=== PATIENT | male | born 1970 | race Caucasian/White ===

== ENCOUNTER 2023-03-30 08:14 | Outpatient (REF) | payer OTHER, SELFPAY ==
[2023-03-30 11:00] LABS: MANUAL DIFF FLAG NO
[2023-03-30 11:20] LABS: Appearance Urine Clear; Color Urine Yellow; Glucose Urine UA Negative (Negative); Leukocyte Esterase Urine Negative (Negative); Nitrite Urine Negative (Negative); Specific Gravity - Urine 1.025 (1.005-1.025); UMIC TRIGGER UA YES; Urine Blood Negative (Negative); Urine Ketones Negative (Negative); Urine Protein 100 (2+) mg/dL (Neg-Trace)
[2023-03-30 11:22] LABS: Eosinophils Absolute Auto 0.2 X10*3/uL (0.0-0.4); Eosinophils Percent Auto 3.6 % (0-4); Hematocrit 39.7 % (42.0-52.0); Hemoglobin 13.2 g/dl (14.0-18.0); Imm Gran Abs Auto 0.01 X10*3/uL (0.00-0.03); Imm Gran Pct Auto 0.2 % (0.0-0.4); Lymphocytes Absolute Auto 0.8 X10*3/uL (1.2-4.9); Lymphocytes Percent Auto 18.4 % (20-40); Mean Corpuscular HGB Conc 33.2 g/dl (31.0-36.0); Mean Corpuscular Volume 90.2 fL (80.0-98.0); Mean Platelet Volume 11.5 fL (9.4-12.4); Monocytes Absolute Auto 0.4 X10*3/uL (0.1-1.2); Monocytes Percent Auto 8.7 % (2-11); Neutrophils Absolute Auto 2.8 x10*3/uL (2.0-8.3); Neutrophils Percent Auto 68.1 % (45-73); Platelet Count 141 X10*3/uL (160-400); Red Cell Distribution Width 12.8 % (11.0-16.0); White Blood Count 4.1 X10*3/uL (4.8-10.8)
[2023-03-30 11:38] LABS: Alanine Aminotransferase 22 U/L (0-40); Albumin Level 4.4 g/dL (3.5-5.0); Alkaline Phosphatase 39 U/L (39-117); Anion Gap 13 (12-20); Aspartate Amino Transferase 27 U/L (5-37); Bilirubin Total 0.7 mg/dL (0.0-1.0); Blood Urea Nitrogen 24 mg/dL (9-16); Carbon Dioxide 25 mmol/L (22-29); Chloride 106 mmol/L (96-108); Cholesterol 268 mg/dL; Estimated Glomerular Filt Rate > 60; Glucose Fasting 95 mg/dL (60-99); HDL Cholesterol 49 mg/dL; LDL Cholesterol Calculated 188 mg/dl; Potassium 4.5 mmol/L (3.3-5.1); Sodium 139 mmol/L (135-145); Triglycerides 159 mg/dL
[2023-03-30 11:39] LABS: Bacteria Urine None Seen (None Seen); Hyaline Casts Urine >20 /LPF (0-2); RBC Urine 0-2 /HPF (0-2); Squamous Epithelial Cell Urine 0-2 /HPF (0-2); WBC Urine 0-5 /HPF (0-5)
[2023-03-30 11:59] LABS: PSA,Total (Free>4and<10) 0.65 ng/mL (0.00-4.00)
== END 2023-03-30 08:15 | disposition home or self-care (01) ==
LOC: HO.HMGCLDS 08:14
PROVIDERS: PCP Internal Medicine; Visit Provider Internal Medicine
DX: Z00.00 Encounter for general adult medical examination without abnormal findings (principal); K62.5 Hemorrhage of anus and rectum; Z12.5 Encounter for screening for malignant neoplasm of prostate
CPT/HCPCS: 36415; 80053; 80061; 81001; 84153; 85025

== ENCOUNTER 2023-04-14 06:39 | Outpatient (REF) | payer OTHER, SELFPAY ==
[2023-04-14 12:01] LABS: Iron 100 mcg/dL (45-160); Percent Iron Saturation 27 % (15-50); Total Iron Binding Capacity 368 mcg/dL (228-428); Unsaturated Iron Binding 268 ug/dL
[2023-04-14 12:34] LABS: Folate 14.5 ng/mL (> or = 4.0); Vitamin B12 308 pg/mL (200-900)
[2023-04-14 13:15] LABS: Creatinine Urine 72.64 mg/dL; Total Protein Urine Random < 7 mg/dL (<12)
== END 2023-04-14 06:40 | disposition home or self-care (01) ==
LOC: HO.HMGCLDS 06:39
PROVIDERS: PCP Internal Medicine; Visit Provider Internal Medicine
DX: D64.9 Anemia, unspecified (principal); R80.9 Proteinuria, unspecified
CPT/HCPCS: 36415; 82607; 82746; 83540; 84156

== ENCOUNTER → 2023-04-19 12:55 | Outpatient (BNVA) | payer OTHER, SELFPAY | PROVIDERS: PCP Internal Medicine; Visit Provider Nurse Practitioner ==

== ENCOUNTER 2023-06-14 08:44 | Outpatient (AMB) | payer OTHER, SELFPAY ==
--- NOTE | 2023-06-14 08:47 | MHC.PC.OV ---
Vital Signs 06/14/23 08:49 Height 5 ft 10 in Weight 183 lb BMI 26.3 BP 130/84 Blood Pressure Location Lt brachial Position Sitting Pulse 66 Pulse Source Pulse Oximeter Pulse Oximetry (%) 99 Oxygen Delivery Method Room Air Intake Visit Reasons: 2m follow up HTN Intake Note: Pt is here today for 2 months follow up visit. Allergies No Known Allergies Allergy (Verified 06/14/23 08:54) Medication List - Last Reconciled 06/14/23 by Tasha Harris MD peg 3350-electrolytes 236-22.74-6.74 -5.86 gram (Golytely) 240 mL PO Q10M 1 day Tobacco use date assessed: 06/14/23 Dental Screening Dental Screen Date: 06/14/23 Did you have a dental visit in the last 12 months?: Yes Did you have a dental problem in the last 6 months where you did not have access to dental care?: No Was dental information given to patient?: Patient has dentist HPI 2m follow up HTN HPI Details Patient presents for the follow-up of elevated blood pressure. He denies complaints PFSH Family History Father No problems noted. 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 Issac Mitchell, Amy Means, Oscar Ramirez and colleagues, with an educational norberto from [employer]. Review of Systems Const All systems reviewed & are unremarkable except as noted in HPI and below Reports no additional complaints Eyes Reports no additional complaints ENT Reports no additional complaints Card Reports no additional complaints Resp Reports no additional complaints GI Reports no additional complaints Reports no additional complaints Physical exam (Primary Care) Vital Signs: Last Vital Signs Pulse 66 06/14/23 08:49 BP 130/84 06/14/23 08:49 Pulse Ox 99 06/14/23 08:49 Oxygen Delivery Method Room Air 06/14/23 08:49 BMI result Body Mass Index 26.3 Tobacco/Smoking Status: Tobacco use Status Tobacco use date assessed 06/14/23 06/14/23 08:57 Patient Tobacco Use Status Former Tobacco user 06/14/23 08:47 e-Cigarette/Vaping Use Never Used 06/14/23 08:47 Thrive Assessment: Date of Thrive Assessment Date Thrive assessed 03/30/23 06/14/23 08:47 Const General: no acute distress HENMT Ears: hearing grossly normal bilaterally Throat: Yes posterior oropharynx normal Neck Neck: Yes supple Resp Effort & Inspection: normal respiratory effort Auscultation: clear to auscultation bilaterally Cardio Rhythm: regular rhythm Heart sounds: S1 normal heart sound present and S2 normal heart sound present Assessment and Plan Assessment & Plan (1) Elevated blood pressure reading in office without diagnosis of hypertension: Code(s): R03.0 - Elevated blood-pressure reading, without diagnosis of hypertension Plan: Continue low-sodium diet regular physical activity. Patient will monitor blood pressure at home. Follow-up in 6 months with a fasting labs before (2) Hyperlipemia: Code(s): E78.5 - Hyperlipidemia, unspecified Plan: Low-cholesterol diet discussed with the patient (3) Proteinuria: Comment: Negative protein creatinine ratio 04/21 Code(s): R80.9 - Proteinuria, unspecified Plan: Monitor urinalysis Orders: Orders Comprehensive [place]. Panel Fast 6 Months E78.5 - Hyperlipidemia, unspecified, R03.0 - Elevated blood-pressure reading, without diagnosis of hypertension Lipid Panel 6 Months E78.5 - Hyperlipidemia, unspecified, R03.0 - Elevated blood-pressure reading, without diagnosis of hypertension Complete Blood Count Auto Diff 6 Months E78.5 - Hyperlipidemia, unspecified, R03.0 - Elevated blood-pressure reading, without diagnosis of hypertension Total Protein Urine Random 6 Months R80.9 - Proteinuria, unspecified Coding Level of Care Code Est Pt Level 4 (62283) Diagnoses Elevated blood pressure reading in office without diagnosis of hypertension R03.0 Hyperlipemia E78.5 Proteinuria R80.9
[2023-06-14 08:49] VITALS: BP 130/84; PULSE 66; O2SAT 99; BMI 26.3
== END 2023-06-14 09:15 | disposition home or self-care (01) ==
PROVIDERS: PCP Internal Medicine; Visit Provider Internal Medicine
DX: R03.0 Elevated blood-pressure reading, without diagnosis of hypertension (principal); E78.5 Hyperlipidemia, unspecified; R80.9 Proteinuria, unspecified
CPT/HCPCS: 99214

== ENCOUNTER 2023-12-20 12:12 | Outpatient (REF) | payer OTHER, SELFPAY ==
[2023-12-20 13:16] LABS: MANUAL DIFF FLAG NO
[2023-12-20 13:39] LABS: Basophils Absolute Auto 0.1 X10*3/uL (0.0-0.2); Basophils Percent Auto 1.3 % (0-2); Eosinophils Absolute Auto 0.1 X10*3/uL (0.0-0.4); Eosinophils Percent Auto 2.6 % (0-4); Hematocrit 39.3 % (42.0-52.0); Hemoglobin 13.5 g/dl (14.0-18.0); Imm Gran Abs Auto 0.01 X10*3/uL (0.00-0.03); Imm Gran Pct Auto 0.2 % (0.0-0.4); Lymphocytes Absolute Auto 1.2 X10*3/uL (1.2-4.9); Lymphocytes Percent Auto 27.3 % (20-40); Mean Corpuscular HGB Conc 34.4 g/dl (31.0-36.0); Mean Corpuscular Hemoglobin 29.9 pg (27.0-33.0); Mean Corpuscular Volume 87.1 fL (80.0-98.0); Mean Platelet Volume 11.2 fL (9.4-12.4); Monocytes Absolute Auto 0.4 X10*3/uL (0.1-1.2); Monocytes Percent Auto 8.6 % (2-11); Neutrophils Absolute Auto 2.7 x10*3/uL (2.0-8.3); Platelet Count 171 X10*3/uL (160-400); Red Blood Count 4.51 X10*6/uL (4.60-5.80); Red Cell Distribution Width 13.2 % (11.0-16.0); White Blood Count 4.6 X10*3/uL (4.8-10.8)
[2023-12-20 14:18] LABS: Alanine Aminotransferase 16 U/L (0-40); Albumin Level 4.5 g/dL (3.5-5.0); Alkaline Phosphatase 39 U/L (39-117); Anion Gap 11 (12-20); Aspartate Amino Transferase 20 U/L (5-37); Bilirubin Total 0.7 mg/dL (0.0-1.0); Blood Urea Nitrogen 14 mg/dL (9-16); Calcium 9.6 mg/dL (8.4-10.2); Carbon Dioxide 30 mmol/L (22-29); Chloride 103 mmol/L (96-108); Cholesterol 249 mg/dL (<200); Estimated Glomerular Filt Rate > 60; Glucose Fasting 84 mg/dL (60-99); HDL Cholesterol 47 mg/dL (>40); LDL Cholesterol Calculated 165 mg/dL (<100); Potassium 3.6 mmol/L (3.3-5.1); Sodium 140 mmol/L (135-145); Total Protein 7.5 g/dL (6.5-8.0); Triglycerides 185 mg/dL (<150)
[2023-12-20 17:12] LABS: Total Protein Urine Random 21 mg/dL (<12)
== END 2023-12-20 12:13 | disposition home or self-care (01) ==
LOC: HO.HMGCLDS 12:12
PROVIDERS: PCP Internal Medicine; Visit Provider Internal Medicine
DX: R80.9 Proteinuria, unspecified (principal); R03.0 Elevated blood-pressure reading, without diagnosis of hypertension; E78.5 Hyperlipidemia, unspecified
CPT/HCPCS: 36415; 80053; 80061; 84156; 85025

== ENCOUNTER 2023-12-21 11:59 | Outpatient (AMB) | payer OTHER, SELFPAY ==
[2023-12-21 12:06] VITALS: BP 122/86; PULSE 78; O2SAT 93; BMI 26.7
--- NOTE | 2023-12-21 12:06 | MHC.PC.OV ---
Vital Signs 12/21/23 12:06 Height 5 ft 10 in Weight 186 lb BMI 26.7 BP 122/86 Blood Pressure Location Lt brachial Position Sitting Pulse 78 Pulse Source Pulse Oximeter Pulse Oximetry (%) 93 Oxygen Delivery Method Room Air Intake Visit Reasons: 6M. F/U-Hyperlipidemia Intake Note: Pt is here to follow up for his Lipids Allergies No Known Allergies Allergy (Verified 12/21/23 12:08) Medication List - Last Reconciled 12/21/23 by Tasha Harris MD No Known Home Meds Tobacco use date assessed: 12/21/23 Dental Screening Dental Screen Date: 12/21/23 Did you have a dental visit in the last 12 months?: Yes Did you have a dental problem in the last 6 months where you did not have access to dental care?: No Was dental information given to patient?: Patient has dentist HPI 6M. F/U-Hyperlipidemia HPI Details Pt presents for f/u hyperlipid, diet controlled. PFSH Medical History (Updated 12/21/23 @ 15:30 by Tasha Harris MD) Hyperlipemia Family History Father No problems noted. 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 1. Little interest or pleasure in doing things: not at all 2. Feeling down, depressed, or hopeless: not at all 3. Trouble falling or staying asleep, or sleeping too much: not at all 4. Feeling tired or having little energy: not at all 5. Poor appetite or overeating: not at all 6. Feeling bad about yourself - or that you are a failure or have let yourself or your family down: not at all 7. Trouble concentrating on things, such as reading the newspaper or watching television: not at all 8. Moving or speaking so slowly that other people could have noticed. Or the opposite - being so fidgety or restless that you have been moving around a lot more than usual: not at all 9. Thoughts that you would be better off or of hurting yourself in some way: not at all Total score: 0 Depression Screening Interpretation: Negative Depression Screening Done: Yes Source: Developed by Drs. Issac Mitchell, Amy Means, Oscar Ramirez and colleagues, with an educational norberto from [employer]. Thrive Questionnaire Date Thrive assessed: 12/21/23 I am a: Patient What is your living situation today?: I have a steady place to live Within the past 12 months, did the food you bought not last and you didn't have the money to get more?: Never true Within the past 12 months, did you worry whether your food would run out before you got money to buy more?: Never true Do you have trouble paying for medicines?: No Do you have trouble getting transportation to medical appointments?: No Do you have trouble paying your heating and electricity bill?: No Do you have trouble taking care of your child, family member or friend?: No Do you have trouble with day-to-day activities such as bathing, preparing meals, shopping, managing finances, etc.?: No Are you currently unemployed and looking for a job?: No Are you interested in more education?: No Please select the resources that you would like help with: None Currently or been in a relationship where the following occur: no concerns reported THRIVE Score: 0 AUDIT C Alcohol Use Questionnaire (AUDIT-C) 1. How often do you have a drink containing alcohol?: 2-4 times a month 2. How many drinks containing alcohol do you have on a typical day when you are drinking?: 1 or 2 3. How often do you have six or more drinks on one occasion?: Less than monthly Total Score: 3 FIONA-7 AMB Questionnaire FIONA-7 Date FIONA - 7 assessed: 12/21/23 Feeling nervous, anxious, or on edge: 0 = Not at all Not being able to stop or control worryin = Not at all Worrying too much about different things: 0 = Not at all Trouble relaxin = Not at all Being so restless that it is hard to sit still: 0 = Not at all Becoming easily annoyed or irritable: 0 = Not at all Feeling afraid as if something awful might happen: 0 = Not at all Total FIONA-7 score (0-4 normal; 5-9 mild; 10-14 moderate; 15-21 severe): 0 Source: Developed by Drs. Issac Mitchell, Amy Means, Oscar Ramirez and colleagues, with an educational norberto from [employer]. Review of Systems Const All systems reviewed & are unremarkable except as noted in HPI and below Reports no additional complaints Eyes Reports no additional complaints ENT Reports no additional complaints Card Reports no additional complaints Resp Reports no additional complaints GI Reports no additional complaints Reports no additional complaints Physical exam (Primary Care) Vital Signs: Last Vital Signs Pulse 78 12/21/23 12:06 BP 122/86 12/21/23 12:06 Pulse Ox 93 12/21/23 12:06 Oxygen Delivery Method Room Air 12/21/23 12:06 BMI result Body Mass Index 26.7 Tobacco/Smoking Status: Tobacco use Status Tobacco use date assessed 12/21/23 12/21/23 12:11 Patient Tobacco Use Status Former Tobacco user 12/21/23 12:11 e-Cigarette/Vaping Use Never Used 12/21/23 12:11 PHQ-9: PHQ-9 Score PHQ-9: Total score 0 12/21/23 12:47 Depression Screening Interpretation: Negative Thrive Assessment: Date of Thrive Assessment Date Thrive assessed 12/21/23 12/21/23 12:47 Currently or been in a relationship where the following occur: no concerns reported Const General: no acute distress HENMT Head: Yes normal to inspection Ears: hearing grossly normal bilaterally Face and sinus: Yes normal facial exam Eyes General: appearance normal, both eyes and all related structures Resp Effort & Inspection: normal respiratory effort Auscultation: clear to auscultation bilaterally Cardio Rhythm: regular rhythm Heart sounds: S1 normal heart sound present and S2 normal heart sound present GI Inspection: Yes normal to inspection Palpation (GI): Soft to palpation Assessment and Plan Assessment & Plan (1) Proteinuria: Comment: Negative protein creatinine ratio 04/21, Code(s): R80.9 - Proteinuria, unspecified Plan: Obtain 24 hour urine collection for protein and creatinine. Patient declined taking KEVIN inhibitor (2) Anemia: Comment: Normal iron studies and B12 level Code(s): D64.9 - Anemia, unspecified Plan: Monitor CBC (3) Annual physical exam: Code(s): Z00.00 - Encounter for general adult medical examination without abnormal findings Plan: Follow-up in 4 months with a fasting labs before, patient will have a colonoscopy tomorrow (4) Hyperlipemia: Code(s): E78.5 - Hyperlipidemia, unspecified Plan: Continue low-cholesterol diet patient declined taking statin Orders: Orders Creatinine, 24 Hr Group Today R80.9 - Proteinuria, unspecified Complete Blood Count Auto Diff 4 Months D64.9 - Anemia, unspecified, Z00.00 - Encounter for general adult medical examination without abnormal findings Vitamin B12 and Folate 4 Months D64.9 - Anemia, unspecified, Z00.00 - Encounter for general adult medical examination without abnormal findings UA w Microscopic 4 Months D64.9 - Anemia, unspecified, Z00.00 - Encounter for general adult medical examination without abnormal findings Protein, 24 Hr Urine Group Today R80.9 - Proteinuria, unspecified Comprehensive [place]. Panel Fast 4 Months D64.9 - Anemia, unspecified, Z00.00 - Encounter for general adult medical examination without abnormal findings Lipid Panel 4 Months D64.9 - Anemia, unspecified, Z00.00 - Encounter for general adult medical examination without abnormal findings PSA,Total (Free>4and<10) 4 Months D64.9 - Anemia, unspecified, Z00.00 - Encounter for general adult medical examination without abnormal findings Methylmalonic Acid 4 Months D64.9 - Anemia, unspecified Immunofixation Pnl, Serum 4 Months D64.9 - Anemia, unspecified Immunofixation, Random Urine 4 Months D64.9 - Anemia, unspecified Coding Level of Care Code Est Pt Level 4 (22022) Diagnoses Proteinuria R80.9 Anemia D64.9 Annual physical exam Z00.00 Hyperlipemia E78.5
== END 2023-12-21 15:32 | disposition home or self-care (01) ==
PROVIDERS: PCP Internal Medicine; Visit Provider Internal Medicine
DX: R80.9 Proteinuria, unspecified (principal); D64.9 Anemia, unspecified; Z00.00 Encounter for general adult medical examination without abnormal findings; E78.5 Hyperlipidemia, unspecified
CPT/HCPCS: 99214

== ENCOUNTER 2023-12-22 06:29 | Day surgery (SDC) | payer OTHER, SELFPAY ==
[2023-12-20 13:27] VITALS: BMI 26.4
--- NOTE | 2023-12-21 09:13 | P.CONAN_ITS ---
Documented by User: Brenda Sanchez NP 12/21/23 09:14 HPI - Anesthesia Eval Consult details Narrative: 53yo M for Colonoscopy [facility] Active Problems Active Problems: All Active Problems (Updated 06/14/23 @ 09:15 by Tasha Harris MD) Hyperlipemia (Acute) Pre-op examination (Acute) Proteinuria (Acute) Anemia (Acute) Elevated blood pressure reading in office without diagnosis of hypertension (Acute) Annual physical exam (Acute) Rectal bleeding (Acute) Past Medical History Medical History (Updated 12/21/23 @ 15:30 by Tasha Harris MD) Hyperlipemia Family History Family History Father No problems noted. 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 Patient Tobacco Use Status: Never used Tobacco e-Cigarette/Vaping Use: Never Used Use of substances other than those prescribed or required for medical reasons: No Are you DNR?: No Advance Directives: No Advance Directives Information Provided: Yes service: No Current occupational status: employed Cognitive needs: No Hearing needs: No Vision needs: Yes Meds Allergies Allergy/AdvReac Type Severity Reaction Status Date / Time No Known Allergies Allergy Verified 12/21/23 12:08 Home Medications Medication Instructions Recorded Confirmed Last Taken Type No Known Home Meds 12/21/23 12/22/23 Unknown History Exam Height,Weight and Vital Signs: Height 5 ft 10 in Weight 83.461 kg Pertinent Lab Results Pertinent Lab Results: Laboratory Tests 12/20/23 12:18 WBC 4.6 L Hgb 13.5 L Hct 39.3 L Plt Count 171 Sodium 140 Potassium 3.6 Chloride 103 Carbon Dioxide 30 H BUN 14 Creatinine 1.09 Assessment and Plan Assessment Anesthesia Assessment: Chart Reviewed Documented by User: Ivanna Hurley MD 12/22/23 07:16 [facility] Past Medical History Medical History (Updated 12/21/23 @ 15:30 by Tasha Harris MD) Hyperlipemia Family History Family History Father No problems noted. 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 Tobacco Use Status: Never used Tobacco e-Cigarette/Vaping Use: Never Used Use of substances other than those prescribed or required for medical reasons: No Are you DNR?: No Advance Directives: No Advance Directives Information Provided: Yes service: No Current occupational status: employed Cognitive needs: No Hearing needs: No Vision needs: Yes Meds Allergies Allergy/AdvReac Type Severity Reaction Status Date / Time No Known Allergies Allergy Verified 12/21/23 12:08 Home Medications Medication Instructions Recorded Confirmed Last Taken Type No Known Home Meds 12/21/23 12/22/23 Unknown History Exam Airway Mallampati Class: II TM Dist: >3cm Neck ROM: Full Assessment and Plan Assessment Anesthesia Assessment: Anesthesia Plan Discussed Final Anesthetic Review Family History of Problems with Anesthesia: No History of Problems with Anesthesia: No NPO: Yes ASA Class: II Final Preanesthetic Review: No Changes in Pt Med Stat, Meds/Allgs Chart Reviewed, Consent Obtained/Reviewed and Anes Risks/Benef Reviewed Patient Risk: Low Procedure Risk: Low Anesthetic Plan Anesthetic Plan: TIVA Disposition: Standard PACU
[2023-12-22 06:45] VITALS: BP 133/86; PULSE 74; RESP 18; TEMP 36.1; O2SAT 100; BMI 26.3
[2023-12-22] MEDS: Lactated Ringers 1,000 ML 100 ML IVCONT (07:07)
--- NOTE | 2023-12-22 07:24 | MHC.SHP ---
Pre-Procedural Eval Section A - 24 Hr Update-Section A only Date of Service: 12/22/23 The patient is an INPATIENT: No The patient has been examined within 24 hours of the surgical procedure. The History & Physical has been completed within 30 days and I have reviewed it.: No Section B - Complete if H&P > 30 days Chief Complaint: colon cancer screening, rectal bleeding Relevant Family History (Specify if Yes): Yes Relevant Social History: Tobacco Use (Former smoker) Present Medications: see Short Stay Collaborative assessment Medical History: Significant History (Anemia Elevated blood pressure Rectal bleeding ) History of Previous Operations: No relevant previous surgery Allergies: Allergies Allergy/AdvReac Type Severity Reaction Status Date / Time No Known Allergies Allergy Verified 12/21/23 12:08 Review of Systems Sugical H&P ROS: Negative: Constitution, Cardiovascular, Respiratory and Gastrointestinal Exam Surgical H&P Exam: Normal: Heart, Normal: Lungs, Normal: Extremities and Normal: Abdomen Plan Diagnosis/Plan: Unchanged I have reviewed the history and physical and performed a pertinent physical examination on my patient. No changes have occurred unless specified. Time Spent With Patient Time: Total time managing care of this patient today ____ minutes.
[2023-12-22 08:12] VITALS: BP 106/67; PULSE 74; RESP 16; TEMP 36.1; O2SAT 100
--- NOTE | 2023-12-22 08:14 | W.PM.OPN ---
Operative Note Operative Note Date of Service: 12/22/23 Narrative: COLONOSCOPY TILL CECUM WITH SNARE POLYPECTOMY Pre-op diagnosis: Colon cancer screening - 1st colonoscopy, rectal bleeding Post-op diagnosis:? Colon polyps, diverticulosis, hemorrhoids Endoscopist:? Polo Campuzano MD Anesthesia:?MAC Consent: Indications for the procedure and potential complications of bleeding, perforation, reaction to medications and missed diagnosis were discussed with the patient and informed consent was obtained. Instrument: Olympus CF H 190 L variable stiffness adult colonoscope Monitoring: Vital signs and clinical assessment, intermittent blood pressure monitoring, continuous EKG monitoring, Pulse oximetry and Carbon Dioxide monitoring were done throughout the procedure. Please see anesthesia flowsheet. Colon withdrawl time was 15 minutes. Procedure: The patient was placed in the left lateral decubitis position and pre-procedure medications were administered. After a digital rectal examination of the ano-rectum, the video colonoscope was inserted into the rectum and advanced through the colon to the cecum. The colonoscope was slowly withdrawn in a retrograde panoramic fashion and the colon mucosa was carefully examined including a retroflexed view of the rectum. Findings and interventions are described below. Procedure Difficulty: Without difficulty Findings: Terminal Ileum: Not evaluated Cecum: Normal Ascending Colon: A 10-12 mm sessile polyp in the proximal AC - removed with a hot snare. A 7-8 mm sessile polyp in the distal AC - removed with a hot snare Transverse Colon: Normal Descending Colon: Normal Sigmoid Colon: Moderate diverticulosis Rectum: Normal Ano-rectum: Large non-bleeding internal hemorrhoids Colon preparation: Excellent Gregory Bowel Preparation Scale Right colon; 3 Transverse colon: 3 Left colon; 3 (0 = Unprepared colon segment with mucosa not seen due to solid stool that cannot be cleared. 1 = Portion of mucosa of the colon segment seen, but other areas of the colon segment not well seen due to staining, residual stool and/or opaque liquid. 2 = Minor amount of residual staining, small fragments of stool and/or opaque liquid, but mucosa of colon segment seen well. 3 = Entire mucosa of colon segment seen well with no residual staining, small fragments of stool or opaque liquid) Impression and Post Procedure Diagnosis: Colonoscopy Findings: One small and one medium sized polyps removed Moderate diverticulosis seen in the sigmoid colon Moderate hemorrhoids on retroflexed exam. Plan: Await pathology results Patient has an appointment on 01/02/24 in the [facility] with Zahida Weeks NP. Repeat Colonoscopy interval based on path results - in 3-5 years if polyps are adenomatous and 10 years if polyps are hyperplastic. Above findings were reviewed with the patient and colon polyps, hemorrhoids and diverticulosis handouts were given in the discharge area Pt prescribed HC cream for hemorrhoids. If he has continued bleeding, he can be referred to Dr Rhoades for band ligation or hemorrhoidectomy
[2023-12-22 08:27] VITALS: BP 105/71; PULSE 71; RESP 16; TEMP 36.6; O2SAT 100
== END 2023-12-22 08:50 | disposition home or self-care (01) ==
PROVIDERS: PCP Internal Medicine; Visit Provider Internal Medicine Gastroenterology
PROC: 0DJD8ZZ Inspection of Lower Intestinal Tract, Via Natural or Artificial Opening Endoscopic (ICD-10-PCS; CPT 45378; principal; 2023-12-22 07:30)
DX: Z12.11 Encounter for screening for malignant neoplasm of colon (principal); D12.2 Benign neoplasm of ascending colon; K57.30 Diverticulosis of large intestine without perforation or abscess without bleeding; K62.5 Hemorrhage of anus and rectum; K64.8 Other hemorrhoids; E78.5 Hyperlipidemia, unspecified; D64.9 Anemia, unspecified; R03.0 Elevated blood-pressure reading, without diagnosis of hypertension; Z87.891 Personal history of nicotine dependence
CPT/HCPCS: 45385; 88305; J2704

== ENCOUNTER → 2023-12-22 06:29 | Outpatient (BNV) | payer OTHER, SELFPAY | PROVIDERS: PCP Internal Medicine; Visit Provider Internal Medicine Gastroenterology | DX: Z12.11 Encounter for screening for malignant neoplasm of colon (principal); K63.5 Polyp of colon; K57.90 Diverticulosis of intestine, part unspecified, without perforation or abscess without bleeding; K64.8 Other hemorrhoids | CPT/HCPCS: 45385 ==

== ENCOUNTER 2023-12-26 05:30 | Outpatient (REF) | payer OTHER, SELFPAY ==
[2023-12-26 12:15] LABS: Creatinine, mg/dL 128.05
[2023-12-26 12:22] LABS: Creatinine, mg/dL 127.23; Protein mg/dL < 7 mg/dL
[2023-12-26 13:40] LABS: Creatinine, 24Hr Urine 1.8 G/Day (1.0-2.0); Protein 24 Hr Urine < 98 mg/Day (<150); Total Volume 24 Hour Urine 1400 mL
== END 2023-12-26 05:31 | disposition home or self-care (01) ==
LOC: HO.HMGCLNP 05:30
PROVIDERS: PCP Internal Medicine; Visit Provider Internal Medicine
DX: R80.9 Proteinuria, unspecified (principal)
CPT/HCPCS: 82570; 84156

== ENCOUNTER 2024-01-02 14:54 | Outpatient (AMB) | payer OTHER, SELFPAY ==
--- NOTE | 2024-01-02 14:55 | A.OFFVIS_ITS ---
Intake Vital Signs 01/02/24 15:02 Height 5 ft 10 in Weight 184 lb BMI 26.4 BP 127/80 Blood Pressure Location Lt brachial Position Sitting Pulse 63 Intake Visit Reasons: s/p colon Intake Note: Patient presents to in office visit today in follow up s/p colonoscopy. CC: Patient states that he is doing well. He states his only concern is hemorrhoids but he was given a cream for it by the doctor and told that they need to be removed surgically. Tour Conductor Required: No Accompanied by: Self / Same As Patient Allergies No Known Allergies Allergy (Verified 01/02/24 15:05) HPI s/p colon HPI Details Assessment & Plan (1) Pre-op examination: Code(s): Z01.818 - Encounter for other preprocedural examination Plan: This is his first colonoscopy. He had had some RB on the TT a year ago intermittently and it will occur about once every 2 mos. Recently there has been more in the toilet bowel and on the side of the toilet. He has known hemorrhoids that manifests as a bump on the rectum, and at times is painful. He has no prior experience with anesthesia or sedation. He denies any cardiac or respiratory problems s NO ID problems. His maternal niece had colon polyps but there is no other known FHX of crc ro polyps. Medications: New peg 3350-electroly aminah 236-22.74-6.74 -5.86 gram (Golyt tatum) until feca l effluent is tiago r; do not exceed a total volume of 2 ,000 mL 240 mL PO Q10M 1 day 4,000 mL 0RF Z12.11 - Encounter for screening for malignant neoplas m of colon COLONOSCOPY 12/22/23 Findings: Terminal Ileum: Not evaluated Cecum: Normal Ascending Colon: A 10-12 mm sessile polyp in the proximal AC - removed with a hot snare. A 7-8 mm sessile polyp in the distal AC - removed with a hot snare Transverse Colon: Normal Descending Colon: Normal Sigmoid Colon: Moderate diverticulosis Rectum: Normal Ano-rectum: Large non-bleeding internal hemorrhoids Impression and Post Procedure Diagnosis: Colonoscopy Findings: One small and one medium sized polyps removed Moderate diverticulosis seen in the sigmoid colon Moderate hemorrhoids on retroflexed exam. Plan: Await pathology results Patient has an appointment on 01/02/24 in the [facility] with Zahida Weeks NP. Repeat Colonoscopy interval based on path results - in 3-5 years if polyps are adenomatous and 10 years if polyps are hyperplastic. BIOPSY Received: 12/22/23 Diagnosis Colon, ascending, polypectomy: Fragments of tubular adenoma; negative for high- grade dysplasia or carcinoma TODAY'S VISIT He is agreeable to a 3 year repeat. It took a few days for his stooling to return to normal, we discuss fiber. The procedure was well tolerated. The results were explained and the patient is agreeable to the follow-up interval as stated. Education was provided to tell any 1st degree relatives about their findings to be sure that they are screened by age 45. Educated that they will be put on a recall list when it is time for their repeat scope but should they move out of state or away from the hospital they will need to remember along with their primary to repeat the procedure in a timely fashion to avoid any adverse complications. PFSH Medical History Hyperlipemia Surgical History H/O colonoscopy Family History Father No problems noted. 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 Patient Tobacco Use Status: Never used Tobacco e-Cigarette/Vaping Use: Never Used service: No Current occupational status: employed Cognitive needs: No Hearing needs: No Vision needs: Yes Review of Systems Const Denies fatigue, Denies fever(s), Denies night sweats, Denies poor appetite and Denies weight loss ENT Reports Normal hearing present, Denies dental pain, Denies dysphagia, Denies hearing loss, Denies mouth pain, Denies odynophagia, Denies throat swelling, Denies tongue swelling and Reports other (Dentition adequate) Card Reports no additional complaints Resp Reports no additional complaints GI Details: Denies abdominal pain, Denies melena, Denies bloating, Denies hematochezia, Denies constipation, Denies GI cramping, Denies dysphagia, Denies excessive flatus, Denies early satiety, Denies heartburn, Denies diarrhea, Denies nausea, Denies odynophagia, Denies vomiting and Denies hematemesis Skin/Breast Denies pruritus, Denies lesions, Denies rash and Denies jaundice Neuro Reports Normal hearing present and Denies Abnormal speech present Endo Denies fatigue Aller/Immun Denies throat swelling and Denies tongue swelling Physical Exam Vital Signs: Last Vital Signs Pulse 63 01/02/24 15:02 BP 127/80 01/02/24 15:02 BMI result Body Mass Index 26.4 Const General: cooperative, no acute distress, well developed and well groomed Nutritional Appearance: average body habitus and well nourished Orientation/consciousness: oriented to person, oriented to place and oriented to time Limitations: No language barrier HEENT Head: Yes normocephalic and Yes atraumatic Eyes General: appearance normal, both eyes and all related structures Pupils: Equal, round and reactive pupils present Neck Neck: Yes normal visual inspection and Yes no lymphadenopathy Thyroid: Thyroid normal Resp Effort & Inspection: normal respiratory effort and able to speak in complete sentences Auscultation: clear to auscultation bilaterally Cardio Rate: regular rate Rhythm: regular rhythm Heart sounds: Normal, physiologic split S2 sound present Peripheral pulses: radial pulses present and posterior tibial pulses present GI Inspection: No distended and No Abdominal panniculus present Palpation (GI): Soft to palpation, nontender, no guarding, not rigid and No hepatosplenomegaly present Percussion: Yes normal to percussion Auscultation: normal bowel sounds Rectal Exam - Male: Yes deferred Skin General skin exam: no rashes or lesions noted, turgor normal, skin not dry, no jaundice, No spider nevi and no striae Rashes: no rashes Nails: normal Neuro General: oriented to person, oriented to place and oriented to time Cranial nerves: Yes Equal, round and reactive pupils present and Yes Normal hearing present Speech: No Abnormal speech present Extrem General: Yes normal to inspection, No clubbing, No cyanosis and No edema Psych Appearance: grossly normal and well kempt Mental Status: mental status grossly normal Speech and movement: Normal speech and movement present Affect: normal affect Attitude: cooperative Thought process: Normal thought process present and not confabulating Thought content: Normal thought content present Insight: Fair insight present (Psych) Judgement: Fair judgement present (Psych) Results Reviewed Results Reviewed: COLONOSCOPY 12/22/23 Findings: Terminal Ileum: Not evaluated Cecum: Normal Ascending Colon: A 10-12 mm sessile polyp in the proximal AC - removed with a hot snare. A 7-8 mm sessile polyp in the distal AC - removed with a hot snare Transverse Colon: Normal Descending Colon: Normal Sigmoid Colon: Moderate diverticulosis Rectum: Normal Ano-rectum: Large non-bleeding internal hemorrhoids Impression and Post Procedure Diagnosis: Colonoscopy Findings: One small and one medium sized polyps removed Moderate diverticulosis seen in the sigmoid colon Moderate hemorrhoids on retroflexed exam. Plan: Await pathology results Patient has an appointment on 01/02/24 in the GI Clinic with Zahida Weeks NP. Repeat Colonoscopy interval based on path results - in 3-5 years if polyps are adenomatous and 10 years if polyps are hyperplastic. BIOPSY Received: 12/22/23 Diagnosis Colon, ascending, polypectomy: Fragments of tubular adenoma; negative for high- grade dysplasia or carcinoma Assessment & Plan Assessment & Plan (1) Tubular adenoma of colon: Code(s): D12.6 - Benign neoplasm of colon, unspecified Plan He is agreeable to a 3 year repeat. It took a few days for his stooling to return to normal, we discuss fiber. The procedure was well tolerated. The results were explained and the patient is agreeable to the follow-up interval as stated. Education was provided to tell any 1st degree relatives about their findings to be sure that they are screened by age 45. Educated that they will be put on a recall list when it is time for their repeat scope but should they move out of state or away from the hospital they will need to remember along with their primary to repeat the procedure in a timely fashion to avoid any adverse complications. Coding Level of Care Code Est Pt Level 3 (89893) Diagnoses Tubular adenoma of colon D12.6
[2024-01-02 15:02] VITALS: BP 127/80; PULSE 63; BMI 26.4
== END 2024-01-02 15:15 | disposition home or self-care (01) ==
PROVIDERS: PCP Internal Medicine; Visit Provider Nurse Practitioner
DX: D12.6 Benign neoplasm of colon, unspecified (principal)
CPT/HCPCS: 99213

== ENCOUNTER → 2024-01-02 14:54 | Outpatient (BNVA) | payer OTHER, SELFPAY | PROVIDERS: PCP Internal Medicine; Visit Provider Nurse Practitioner ==

== ENCOUNTER 2024-03-28 06:26 | Outpatient (REF) | payer OTHER, SELFPAY ==
[2024-03-28 10:30] LABS: MANUAL DIFF FLAG NO
[2024-03-28 10:36] LABS: Appearance Urine Clear; Color Urine Yellow; Glucose Urine UA Negative (Negative); Leukocyte Esterase Urine Negative (Negative); Nitrite Urine Negative (Negative); Urine Blood Negative (Negative); Urine Ketones Negative (Negative); Urine Protein Negative (Neg-Trace)
[2024-03-28 10:44] LABS: Bacteria Urine None Seen (None Seen); Hyaline Casts Urine 0-2 /LPF (0-2); RBC Urine 0-2 /HPF (0-2); Squamous Epithelial Cell Urine 0-2 /HPF (0-2); WBC Urine 0-5 /HPF (0-5)
[2024-03-28 10:47] LABS: Basophils Percent Auto 0.8 % (0-2); Eosinophils Absolute Auto 0.2 X10*3/uL (0.0-0.4); Eosinophils Percent Auto 3.2 % (0-4); Hematocrit 39.7 % (42.0-52.0); Hemoglobin 13.3 g/dl (14.0-18.0); Imm Gran Abs Auto 0.01 X10*3/uL (0.00-0.03); Imm Gran Pct Auto 0.2 % (0.0-0.4); Lymphocytes Percent Auto 20.8 % (20-40); Mean Corpuscular HGB Conc 33.5 g/dl (31.0-36.0); Mean Corpuscular Hemoglobin 29.8 pg (27.0-33.0); Mean Corpuscular Volume 88.8 fL (80.0-98.0); Mean Platelet Volume 11.5 fL (9.4-12.4); Monocytes Absolute Auto 0.4 X10*3/uL (0.1-1.2); Monocytes Percent Auto 8.2 % (2-11); Neutrophils Absolute Auto 3.2 x10*3/uL (2.0-8.3); Neutrophils Percent Auto 66.8 % (45-73); Platelet Count 132 X10*3/uL (160-400); Red Blood Count 4.47 X10*6/uL (4.60-5.80); Red Cell Distribution Width 12.8 % (11.0-16.0); White Blood Count 4.8 X10*3/uL (4.8-10.8)
[2024-03-28 10:52] LABS: Alanine Aminotransferase 19 U/L (0-40); Albumin Level 4.5 g/dL (3.5-5.0); Alkaline Phosphatase 41 U/L (39-117); Anion Gap 12 (12-20); Aspartate Amino Transferase 23 U/L (5-37); Bilirubin Total 0.5 mg/dL (0.0-1.0); Blood Urea Nitrogen 16 mg/dL (9-16); Calcium 8.8 mg/dL (8.4-10.2); Carbon Dioxide 25 mmol/L (22-29); Chloride 106 mmol/L (96-108); Cholesterol 247 mg/dL (<200); Estimated Glomerular Filt Rate > 60; Glucose Fasting 84 mg/dL (60-99); HDL Cholesterol 54 mg/dL (>40); LDL Cholesterol Calculated 173 mg/dL (<100); Sodium 139 mmol/L (135-145); Total Protein 7.3 g/dL (6.5-8.0); Triglycerides 103 mg/dL (<150)
[2024-03-28 11:37] LABS: Folate 9.4 ng/mL (> or = 4.0); Vitamin B12 391 pg/mL (200-900)
[2024-03-28 13:36] LABS: PSA,Total (Free>4and<10) 0.72 ng/mL (0.00-4.00)
[2024-04-01 08:19] LABS: Methylmalonic Acid 99 nmol/L (87-318)
[2024-04-02 15:38] LABS: IgA 103 mg/dL (47-310); IgG 1239 mg/dL (600-1640); IgM 82 mg/dL (50-300)
== END 2024-03-28 06:27 | disposition home or self-care (01) ==
LOC: HO.HMGCLDS 06:26
PROVIDERS: PCP Internal Medicine; Visit Provider Internal Medicine
DX: Z00.00 Encounter for general adult medical examination without abnormal findings (principal); D64.9 Anemia, unspecified; Z12.5 Encounter for screening for malignant neoplasm of prostate
CPT/HCPCS: 80053; 80061; 81001; 82607; 82746; 82784; 83921; 84153; 85025; 86334; 86335

== ENCOUNTER 2024-04-01 07:30 | Outpatient (AMB) | payer OTHER, SELFPAY ==
--- NOTE | 2024-04-01 07:32 | MHC.PC.OV ---
Vital Signs 04/01/24 07:33 Height 5 ft 10 in Weight 184 lb 8 oz BMI 26.5 BP 108/70 Blood Pressure Location Rt brachial Position Sitting Pulse 61 Pulse Source Pulse Oximeter Pulse Oximetry (%) 98 Oxygen Delivery Method Room Air Intake Visit Reasons: Annual PE Allergies No Known Allergies Allergy (Verified 04/01/24 07:34) Medication List - Last Reconciled 04/01/24 by Tasha Harris MD No Known Home Meds Tobacco use date assessed: 12/21/23 Dental Screening Dental Screen Date: 12/21/23 HPI Annual PE HPI Details Pt presents for PE. PFSH Medical History Hyperlipemia Surgical History H/O colonoscopy Family History Father No problems noted. 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 Issac Mitchell, Amy Means, Oscar Ramirez and colleagues, with an educational norberto from [employer]. Review of Systems Const All systems reviewed & are unremarkable except as noted in HPI and below Reports no additional complaints Eyes Reports no additional complaints ENT Reports no additional complaints Card Reports no additional complaints Resp Reports no additional complaints GI Reports no additional complaints Reports no additional complaints Physical exam (Primary Care) Vital Signs: Last Vital Signs Pulse 61 04/01/24 07:33 BP 108/70 04/01/24 07:33 Pulse Ox 98 04/01/24 07:33 Oxygen Delivery Method Room Air 04/01/24 07:33 BMI result Body Mass Index 26.5 Tobacco/Smoking Status: Tobacco use Status Tobacco use date assessed 12/21/23 04/01/24 07:35 Patient Tobacco Use Status Never used Tobacco 04/01/24 07:35 e-Cigarette/Vaping Use Never Used 04/01/24 07:35 Thrive Assessment: Date of Thrive Assessment Date Thrive assessed 12/21/23 04/01/24 07:35 Const General: no acute distress HENMT Head: Yes normal to inspection Ears: hearing grossly normal bilaterally General nose exam: Normal external nose present Face and sinus: Yes normal facial exam Throat: Yes posterior oropharynx normal Neck Neck: Yes no lymphadenopathy and Yes supple Resp Effort & Inspection: normal respiratory effort Auscultation: clear to auscultation bilaterally Cardio Rhythm: regular rhythm Heart sounds: S1 normal heart sound present and S2 normal heart sound present GI Inspection: Yes normal to inspection Palpation (GI): Soft to palpation Percussion: Yes normal to percussion Auscultation: normal bowel sounds Assessment and Plan Assessment & Plan (1) Annual physical exam: Code(s): Z00.00 - Encounter for general adult medical examination without abnormal findings Plan: Well-balanced diet regular physical activity discussed with the patient he is up-to-date with colonoscopy (2) Hyperlipemia: Code(s): E78.5 - Hyperlipidemia, unspecified Orders: Orders Comprehensive [place]. Panel Fast 1 Year E78.5 - Hyperlipidemia, unspecified, Z00.00 - Encounter for general adult medical examination without abnormal findings UA w Microscopic 1 Year E78.5 - Hyperlipidemia, unspecified, Z00.00 - Encounter for general adult medical examination without abnormal findings Lipid Panel 1 Year E78.5 - Hyperlipidemia, unspecified, Z00.00 - Encounter for general adult medical examination without abnormal findings Complete Blood Count Auto Diff 1 Year E78.5 - Hyperlipidemia, unspecified, Z00.00 - Encounter for general adult medical examination without abnormal findings PSA,Total (Free>4and<10) 1 Year E78.5 - Hyperlipidemia, unspecified, Z00.00 - Encounter for general adult medical examination without abnormal findings Coding Level of Care Code Est Pt Prev Care 40-64y(87190) Diagnoses Annual physical exam Z00.00 Hyperlipemia E78.5
[2024-04-01 07:33] VITALS: BP 108/70; PULSE 61; O2SAT 98; BMI 26.5
== END 2024-04-01 08:17 | disposition home or self-care (01) ==
PROVIDERS: PCP Internal Medicine; Visit Provider Internal Medicine
DX: Z00.00 Encounter for general adult medical examination without abnormal findings (principal); E78.5 Hyperlipidemia, unspecified
CPT/HCPCS: 99396

== ENCOUNTER 2025-01-02 15:47 | Outpatient (AMB) | payer OTHER, SELFPAY ==
[2025-01-02 15:47] VITALS: BP 110/70; PULSE 67; TEMP 36.6; O2SAT 97
--- NOTE | 2025-01-02 15:47 | MHC.OFFWIV ---
Intake Vital Signs 01/02/25 15:47 Height 5 ft 10 in BMI Reason not done Patient refused/unable BP 110/70 Blood Pressure Location Lt brachial Position Sitting Pulse 67 Pulse Source Pulse Oximeter Temp 97.9 F Temp Source Oral Pulse Oximetry (%) 97 Intake Visit Reasons: EP UTI? Patient Tobacco Use Status: Never used Tobacco Allergies No Known Allergies Allergy (Verified 01/02/25 15:47) Do you need a note to return to daycare/school/sports/work: No HPI HPI Comments History of Present Illness Details History of Present Illness - The patient is a 54-year-old male presenting with 1 day of blood in his urine. 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 - The patient denies pain with urination, increased urinary frequency, back pain, fever, or recent urinary infections. - Remote history of kidney stones. - A non-smoker with no secondhand smoke exposure history. - Only sexual partner is his ; very low risk for sexually transmitted infections. - No history or indication of prostatic or BPH symptoms. Physical Exam General: Cooperative, healthy appearing, comfortable, no acute distress and well developed Orientation: Patient oriented x3 Limitations: No limitations Head: Normal to inspection Ears: Hearing grossly normal bilaterally Nose: Normal external nose present Face and sinus: Normal facial exam Eyes: Appearance normal, both eyes and all related structures Neck: Normal visual inspection and Yes full ROM Respiratory: Normal respiratory effort and able to speak in complete sentences. Skin: No rashes or lesions noted Neuro: Patient oriented x3 Extremities: Normal to inspection PFSH Medical History Hyperlipemia Surgical History H/O colonoscopy Family History Father No problems noted. 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 Tobacco Use Status: Never used Tobacco e-Cigarette/Vaping Use: Never Used service: No Current occupational status: employed Cognitive needs: No Hearing needs: No Vision needs: Yes Review of Systems Const All systems reviewed & are unremarkable except as noted in HPI and below Physical Exam Vital Signs: Last Vital Signs Temp 97.9 F 01/02/25 15:47 Pulse 67 01/02/25 15:47 BP 110/70 01/02/25 15:47 Pulse Ox 97 01/02/25 15:47 Results AMB Urinalysis, Automated UA Leukoctes 0 Иван/uL Last Edit by Leeroy Washington CMA on 01/02/25 16:08 UA Nitrite Negative Last Edit by Leeroy Washington, JUDY on 01/02/25 16:08 UA Urobilinogen 0.2 mg/dL Last Edit by Leeroy Washington, JUDY on 01/02/25 16:08 UA Protein 30 mg/dL Last Edit by Leeroy Washington, JUDY on 01/02/25 16:08 UA pH 6.0 Last Edit by Leeroy Washington, JUDY on 01/02/25 16:08 UA Blood 200 Kevin/uL Last Edit by Leeroy Washington, JUDY on 01/02/25 16:08 UA Specific [place] 1.030 Last Edit by Leeroy Washington CMA on 01/02/25 16:08 UA Ketone Negative Last Edit by Leeroy Washington CMA on 01/02/25 16:08 UA Bilirubin 0 mg/dL Last Edit by Leeroy Washington, JUDY on 01/02/25 16:08 UA Glucose 0 mg/dL Last Edit by Leeroy Washington CMA on 01/02/25 16:08 Results Reviewed Results Reviewed: Laboratory Last Values Urine pH (Auto) 6.0 01/02/25 16:07 Specific [place] (Auto) 1.030 01/02/25 16:07 Urine Protein (Auto) 30 mg/dL 01/02/25 16:07 Glucose (UA)(Auto) 0 mg/dL 01/02/25 16:07 Urine Ketones (Auto) Negative 01/02/25 16:07 Urine Blood (Auto) 200 Kevin/uL 01/02/25 16:07 Urine Nitrite (Auto) Negative 01/02/25 16:07 Urine Bilirubin (Auto) 0 mg/dL 01/02/25 16:07 Urine Urobilinogen (Auto) 0.2 mg/dL 01/02/25 16:07 Leukocyte Esterase (Auto) 0 Иван/uL 01/02/25 16:07 Assessment & Plan Assessment & Plan (1) Hematuria: Code(s): R31.9 - Hematuria, unspecified Qualifiers: Hematuria type: asymptomatic microscopic Qualified Code(s): R31.21 - Asymptomatic microscopic hematuria Plan: UA 1+ protein, 3+ blood, neg for leuks or nitrites. VSS, pt well appearing, asymptomatic for UTI, low concern for STI, never a smoker. Previous UA's have been negative for blood but positive for protein. The current plan involves conducting a urine culture to ascertain any hidden infections as UA neg for infection. Should the culture return positive for infection, appropriate treatment will be started. Considering the patient's history of kidney stones, nephrolithiasis remains a differential if no infection is found. In cases of sudden onset back pain, potential nephrolithiasis should be considered, patient was instructed to go to the ED if this happens. A follow-up with the patient's primary care physician, Dr. Harris, is suggested if symptoms continue to evolve and culture is negative. In the interim, the patient has been counseled to attend the Emergency Room if acute changes occur, particularly with significant pain, aligning it with signs of a kidney stone. Patient was informed and verbally consented to the use of an ambient scribe for clinic note documentation during this visit. Orders: Orders Urine Culture Today Rosemary Devine PA-C N39.0 - Urinary tract infection, site not specified AMB Urinalysis Automated Today Mehreen Antoine NP Z13.9 - Encounter for screening, unspecified Coding Level of Care Code Est Pt Level 4 (74379) Diagnoses Asymptomatic microscopic hematuria R31.21 Hematuria type: asymptomatic microscopic
--- OUTSIDE RECORDS SUMMARY | 2025-01-02 19:10 | XMS_ITS | Continuity of Care Document ---
Author Organization [facility] Address [address] [place] [address] [address] [place] [address]- Care Team Providers Care Security Installation Technician Name Role Phone Tasha Harris MD Primary Care [id number] Date[facility]s): 12/24/24 - 12/31/[address] [place] [address]- Encounter Diagnosis Hemorrhoids(Discharge Diagnosis) - 12/24/24 Attending Physician: Ness Leal NP Referring Physician: Tasha Harris MD Encounter Type: Office Visit Allergies, Adverse Reactions, Alerts No Known Allergies Medications Colace sodium 100 mg oral capsule 1 capsule = 100 mg, By Mouth, 2 times a day, PRN for constipation, # 20 capsule, 0 Refills, Maintenance, 06/14/11 10:05:37 AM EDT, Capsule Start Date: 06/14/11 Status: Ordered Quantity: 20.0 Unit: capsule Repeat number: 1 hydrocortisone 2.5% topical cream 1 application, Topically, 2 times a day, for 14 days, apply in a thin film internally and externally to anus and rub in gently. Take 2 weeks off and repeat for another 2 weeks., # 30 Gm, 1 Refills, Acute 01/21/25 8:17:00 AM EDT, 12/24/24 8:17:00 AM EST, Cream, [id number], Partial fill uponpatient request if the prescription is for a schedule II opioid drug., 1 application Topically 2 times a day,x14 days,Instr:apply in a thin film internally and externally to anus and rub in gently. Take 2 weeks off and repeat for another 2 weeks., 183, cm, 12/24/24 8:15:00 EST, Height Start Date: 12/24/24 Stop Date: 01/21/25 Status: Ordered Quantity: 30.0 Unit: g Repeat number: 2 Keflex monohydrate 500 mg oral capsule 1 capsule = 500 mg, By Mouth, Every 8 hours, # 15 capsule, 0 Refills, Maintenance, 06/14/11 9:40:39 AM EDT, Capsule Start Date: 06/14/11 Stop Date: 06/19/11 Status: Ordered Quantity: 15.0 Unit: capsule Repeat number: 1 Percocet-5/325 325 mg-5 mg oral tablet 1 tablet, By Mouth, Every 4 hours, PRN Pain, (not to exceed 4000 mg acetaminophen per day), # 60 tablet, 0 Refills, Maintenance, 06/14/11 9:40:36 AM EDT, Tablet Start Date: 06/14/11 Status: Ordered Quantity: 60.0 Unit: tablet Repeat number: 1 Percocet-5/325 325 mg-5 mg oral tablet 2 tablet, By Mouth, Every 6 hours, PRN for pain, # 24 tablet, 0 Refills, Maintenance, 05/30/11 4:08:19 PM EDT, Tablet Start Date: 05/30/11 Status: Ordered Quantity: 24.0 Unit: tablet Repeat number: 1 Problem List Diagnosis Diagnosis Type Effective Dates Health Status Clini yg Service Informant Hemorrhoids Discharge Diagnosis 12/24/24 Vital Signs Most recent to oldest [Reference Range]: 1 Height 183.00 cm (12/24/24 8:15 AM) Weight 87.6 kg (12/24/24 8:15 AM) Pulse Rate [55-90 bpm] 80 bpm (12/24/24 8:15 AM) Body Mass Index [18.5-24.99 kg/m2] 26.16 kg/m2 *H* (12/24/24 8:15 AM) Blood Pressure [90-138/55-84 mm Hg] 135/ 85mm Hg (12/24/24 8:15 AM) Temperature [96.8-100.4 DegF] 98.1 DegF (12/24/24 8:15 AM) Blood pressure sites Arm, right (12/24/24 8:15 AM) Temperature Route Temporal (12/24/24 8:15 AM) Note * Lizet Tovar: PERFORM Event Display: Patient Education/Instruction Authored Date: [id number] Ambulatory Adult Visit Summary [facility] [address] [place], [place] [id number] Name: MICHEL BELCHER : 1970?? Visit: 12/24/2024 08:11?? Ambulatory Visit Instructions ?? Your Care Team Primary Care Provider Tasha Harris MD? This Visit Provider Ness Leal NP Your Diagnosis Hemorrhoids Vitals Signs Temperature: 98.1 DegF Height: 183 cm Pulse Rate: 80 bpm Weight: 87.6 kg Systolic Blood Pressure: 135 mm Hg Body Mass Index:??26.16 kg/m2??High Diastolic Blood Pressure:??85 mm Hg??High Body surface area: 2.11 What to do next Scheduled Follow-Up Appointments 2024 3:00 PM EDT ?? With: Ness Leal NP Where: [address] [place] [address]- Status: Pending Medications The list below reflects the information in our records and provided by you today along with any changes made during this visit. Please continue your medications until treatment is completed or stopped by your provider. If this is different from the information you have or there are other questions,please contact the prescribing provider. What How Much When Instructions Unchanged Cephalexin (Keflex monohydrate 500 mg oral capsule) 1 capsule Oral Every 8 hours Duration: 5 Days Unchanged Docusate (Colace sodium 100 mg oral capsule) 1 capsule Oral Twice a day as needed for for constipation Unchanged Oxycodone / Acetaminophen (Percocet-5/ 325 325 mg-5 mg oral tablet) 1 tab(s) Oral Every 4 hours as needed for Pain (not to exceed 4000 mg acetaminophen per day) ?? Unchanged Oxycodone / Acetaminophen (Percocet-5/ 325 325 mg-5 mg oral tablet) 2 tab(s) Oral Every 6 hours as needed for for pain Medications and Immunizations Administered Medications Given During Visit No medications given during this visit.?? Allergies (NKA means No Known Allergies) NKA Common Emergency Awareness Tips IS IT A STROKE? Act FAST and Check for these signs: FACE Does the face look uneven? ARM Does one arm drift down? SPEECH Does their speech sound strange? TIME Call at any sign of stroke ?? Heart Attack Signs Chest discomfort: Most heart attacks involve discomfort in the center of the chest and lasts more than a few minutes, or goes away and comes back. It can feel like uncomfortable pressure, squeezing, fullness or pain. Discomfort in upper body: Symptoms can include pain or discomfort in one or both arms, back, neck, jaw or stomach. Shortness of breath: With or without discomfort. Other signs: Breaking out in a cold sweat, nausea, or lightheaded. Remember, MINUTES DO MATTER. If you experience any of these heart attack warning signs, call to get immediate medical attention! ?? Smoking can increase your chances of developing chronic health problems and can cause harmful effects to other family members in your house. If you smoke, you are strongly encouraged to quit. Please call [employer] [facility] at [phone] or [phone] ([phone]) or log in to [email or web address] for referrals to smoking cessation programs. ?? The National Suicide Prevention Hotline is available 22/05 if you or someone you know needs to find a reason to keep living. By calling 4-990-927-Wakie (7266) you'll be connected to a skilled, trained counselor at a crisis center in your area. [facility] Portal You can view and manage your care through the patient portal or by using a health care delmy of your choosing. [employer] is a website that allows you to securely view your medical information including your hospital discharge summary, office visit summaries, medications and follow-up visits. You can also request appointments, renew medications, and request access to your medical information using a health care delmy of your choosing, or just ask a question. You can enroll at [email or web address] or register during your next office visit. [facility], in keeping with [facility] guidance, no longer requires face masks for staff, patientsor visitors in most situations. Similiar to time spent indoors at other locations, there is the chance that you were exposed to repiratory viruses during your time with us (such as flu or COVID-19). If you develop symptoms concerning for a viral respiratory infection, please seek testing (and treatment if indicated) from your medical provider or home test kit. ?? Disclaimer: The information provided is of a general nature and is intended to be used in conjunction with the recommendations and advice of your health care practitioner. Every effort has been made to ensure that the information provided is accurate and complete at the time it is provided to you however, as your needs change, or, as new information becomes available, different or additional instructions may be required. ?? If you have questions, please consult with your primary care provider or pharmacist, as appropriate. This information is not intended to serve as substitution for assessment and evaluation by a qualified health care provider. If you do not have a primary care provider, you may find a [facility] provider by calling [facility] at [phone]. Patient Care team information Care Team Personnel Name: Tasha Harris MD Position: [facility] Physician - Primary Care Member Role: PCP Address: [address] Telecom: Care Team Related Persons Name: TERESITA BELCHER Insurance Providers Guarantor name: SHAILA Health Plan Information #: 1 Payer: [employer] Member Number: [id number] Policy Number: NA Group Number: [id number] Health Plan Information #: 2 Payer: [employer] Member Number: [id number] Policy Number: SHAILA Group Number: [id number]
== END 2025-01-02 16:25 | disposition home or self-care (01) ==
PROVIDERS: PCP Internal Medicine; Visit Provider Physician Assistant
DX: Z13.9 Encounter for screening, unspecified (principal); R31.21 Asymptomatic microscopic hematuria

== ENCOUNTER 2025-01-02 15:47 | Outpatient (REF) | payer OTHER, SELFPAY | END 2025-01-02 15:48 | disposition home or self-care (01) | LOC: HO.LAB 15:47 | PROVIDERS: PCP Internal Medicine; Visit Provider Physician Assistant | DX: N39.0 Urinary tract infection, site not specified (principal); R31.21 Asymptomatic microscopic hematuria | CPT/HCPCS: 81003; 87086 ==

== ENCOUNTER 2025-05-12 10:49 | Outpatient (REF) | payer OTHER, SELFPAY ==
[2025-05-12 13:56] LABS: MANUAL DIFF FLAG NO
[2025-05-12 14:06] LABS: Appearance Urine Clear; Glucose Urine UA Negative (Negative); PH 6.5 (5.0-9.0); Specific Gravity - Urine 1.015 (1.005-1.025)
[2025-05-12 14:08] LABS: Hematocrit 39.1 % (42.0-52.0); Hemoglobin 13.6 g/dl (14.0-18.0); Imm Gran Abs Auto 0.01 X10*3/uL (0.00-0.03); Imm Gran Pct Auto 0.3 % (0.0-0.4); Lymphocytes Absolute Auto 1.1 X10*3/uL (1.2-4.9); Mean Corpuscular HGB Conc 34.8 g/dl (31.0-36.0); Mean Corpuscular Hemoglobin 29.9 pg (27.0-33.0); Mean Corpuscular Volume 85.9 fL (80.0-98.0); NRBC Abs Auto 0.000 X10*3/uL (0.0-0.012); NRBC Pct Auto 0.0 /100WBC (0.0-0.2); Platelet Count 154 X10*3/uL (160-400); Red Blood Count 4.55 X10*6/uL (4.60-5.80); White Blood Count 3.8 X10*3/uL (4.8-10.8)
[2025-05-12 14:30] LABS: Alanine Aminotransferase 33 U/L (0-40); Albumin Level 4.6 g/dL (3.5-5.0); Alkaline Phosphatase 49 U/L (39-117); Anion Gap 12 (12-20); Aspartate Amino Transferase 31 U/L (5-37); Blood Urea Nitrogen 15 mg/dL (9-16); Calcium 9.4 mg/dL (8.4-10.2); Carbon Dioxide 29 mmol/L (22-29); Chloride 106 mmol/L (96-108); Cholesterol 243 mg/dL (<200); Estimated Glomerular Filt Rate > 60; HDL Cholesterol 45 mg/dL (>40); Potassium 5.3 mmol/L (3.3-5.1); Sodium 142 mmol/L (135-145); Total Protein 7.3 g/dL (6.5-8.0); Triglycerides 189 mg/dL (<150)
[2025-05-12 14:45] LABS: PSA,Total (Free>4and<10) 0.88 ng/mL (0.00-4.00)
== END 2025-05-12 10:50 | disposition home or self-care (01) ==
LOC: HO.HMGCLDS 10:49
PROVIDERS: PCP Internal Medicine; Visit Provider Internal Medicine
DX: Z00.00 Encounter for general adult medical examination without abnormal findings (principal); E78.5 Hyperlipidemia, unspecified
CPT/HCPCS: 36415; 80053; 80061; 81001; 84153; 85025

== ENCOUNTER 2025-05-16 10:16 | Outpatient (AMB) | payer OTHER, SELFPAY ==
--- OUTSIDE RECORDS SUMMARY | 2025-05-12 23:59 | XMS_ITS | Continuity of Care Document ---
Author Organization [facility] Address [address] [place] [address] [address] [place] [address]- Care Team Providers Care Appraiser Oil And Water Name Role Phone Tasha Harris MD Primary Care Physician Encounter [facility] R [id number] Date(s): 05/05/25 - 05/12/[address] [place] [address]- Encounter Diagnosis Hemorrhoids(Discharge Diagnosis) - 05/05/25 Attending Physician: Ness Leal NP Referring Physician: [...] Quantity: 20.0 Unit: capsule Repeat number: 1 Keflex monohydrate 500 mg oral capsule 1 [...] Clini yg Service Informant Hemorrhoids Discharge Diagnosis 05/05/25 Social History Social History Type Response Smoking Status Never (less than 100 in lifetime) entered on: 02/20/25 Sex Sex Representation Male (finding) Note * Lizet Tovar: PERFORM Event Display: Patient Education/Instruction Authored Date: [id number] Ambulatory Adult Visit Summary [facility] [address] [place] [address] Name: MICHEL BELCHER : 1970?? Visit: 05/05/2025 12:41?? Ambulatory Visit Instructions ?? Your Care Team Primary Care Provider Tasha Harris MD? This Visit Provider Ness Leal NP Diagnosis Hemorrhoids Vitals Signs Temperature: 97.9 DegF Height: 183 cm Pulse Rate:??100 bpm??High Weight: 83.3 kg Systolic Blood Pressure:??139 mm Hg??High Body Mass Index: 24.87 kg/m2 Diastolic Blood Pressure:??86 mm Hg??High Body surface area: 2.06 What to do next Scheduled Follow-Up Appointments Monday 1:00 PM EDT ?? With: Ness Leal NP Where: [address] [place] [address]- Status: Pending Medications The list below reflects [...] are strongly encouraged to quit. Please call [employer] [facility] at [phone] or [phone] ([phone]) or log in to [email or web address] for referrals to smoking cessation programs. ?? The National Suicide Prevention Hotline is available 22/05 if you or someone you know needs to find a reason to keep living. By calling 6-283-008-[employer] (6688) you'll be connected to a skilled, trained counselor at a crisis center in your area. [facility] Portal You can view and manage your care through the patient portal or by using a health care delmy of your choosing. [facility] is a website that allows you to securely view your medical information including your hospital discharge summary, office visit summaries, medications and follow-up visits. You can also request appointments, renew medications, and request access to your medical information using a health care delmy of your choosing, or just ask a question. You can enroll at [email or web address] or register during your next office visit. [facility], in keeping with [facility] guidance, no longer requires face masks for [...] primary care provider, you may find a [facility] provider by calling [facility] at [phone]. Patient Care team information Care Team Personnel Name: Tasha Harris MD Position: [facility] Physician - Primary Care Member Role: PCP Address: [address] [place], [place] [address] Telecom: Care Team Related Persons Name: TERESITA BELCHER Insurance Providers Guarantor name: SHAILA Health Plan Information #: 1 Payer: [employer] Payer Identifier: SHAILA Member Number: [id number] Group Number: [id number] Subscriber Identifier: [id number] Relationship to Subscriber: self Coverage Type: Managed Care (Private) Coverage Verification Date: SHAILA Telecom: SHAILA Address:
--- NOTE | 2025-05-16 10:37 | A.OFFPC_ITS ---
Vital Signs 05/16/25 10:38 Height 5 ft 10 in Weight 182 lb BMI 26.1 BP 120/78 Blood Pressure Location Lt brachial Position Sitting Respiration 18 Pulse 70 Pulse Source Pulse Oximeter Temp 98.4 F Temp Source Oral Pulse Oximetry (%) 98 Oxygen Delivery Method Room Air Intake Visit Reasons: Annual PE Intake Note: Pt is here today for PE. Allergies No Known Allergies Allergy (Verified 05/16/25 10:39) Medication List - Last Reconciled 05/16/25 by Tasha Harris MD hydrocortisone 2.5% 1 appl NV BID-QID PRN omega-3 acid ethyl esters PO Tobacco use date assessed: 05/16/25 Dental Screening Dental Screen Date: 05/16/25 Did you have a dental visit in the last 12 months?: Yes Did you have a dental problem in the last 6 months where you did not have access to dental care?: No Was dental information given to patient?: Patient has dentist [facility] Medical History (Updated 05/16/25 @ 15:43 by Tasha Harris MD) Annual physical exam Tubular adenoma of colon Hemorrhoids, internal, with bleeding Hyperlipemia Surgical History H/O colonoscopy Family History Father No problems noted. 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 1. Little interest or pleasure in doing things: not at all 2. Feeling down, depressed, or hopeless: not at all 3. Trouble falling or staying asleep, or sleeping too much: not at all 4. Feeling tired or having little energy: not at all 5. Poor appetite or overeating: not at all 6. Feeling bad about yourself - or that you are a failure or have let yourself or your family down: not at all 7. Trouble concentrating on things, such as reading the newspaper or watching television: not at all 8. Moving or speaking so slowly that other people could have noticed. Or the opposite - being so fidgety or restless that you have been moving around a lot more than usual: not at all 9. Thoughts that you would be better off or of hurting yourself in some way: not at all Total score: 0 Depression Screening Interpretation: Negative Depression Screening Done: Yes 47748 - PHQ-9 Billing: Yes Source: Developed by Drs. Issac Mitchell, Amy Means, Oscar Ramirez and colleagues, with an educational norberto from [employer]. Thrive Questionnaire Date Thrive assessed: 05/16/25 I am a: Parent/Caregiver What is your living situation today?: I have a steady place to live Within the past 12 months, did the food you bought not last and you didn't have the money to get more?: Often true Within the past 12 months, did you worry whether your food would run out before you got money to buy more?: Often true Do you have trouble paying for medicines?: No Do you have trouble getting transportation to medical appointments?: No Do you have trouble paying your heating and electricity bill?: No Do you have trouble taking care of your child, family member or friend?: No Do you have trouble with day-to-day activities such as bathing, preparing meals, shopping, managing finances, etc.?: No Are you currently unemployed and looking for a job?: No Are you interested in more education?: No Please select the resources that you would like help with: None Currently or been in a relationship where the following occur: No concerns rep orted THRIVE Score: 2 AUDIT C Alcohol Use Questionnaire (AUDIT-C) 1. How often do you have a drink containing alcohol?: 2-3 times a week 2. How many drinks containing alcohol do you have on a typical day when you are drinking?: 1 or 2 3. How often do you have six or more drinks on one occasion?: Less than monthly Total Score: 4 FIONA-7 AMB Questionnaire FIONA-7 Date FIONA - 7 assessed: 05/16/25 Feeling nervous, anxious, or on edge: 0 = Not at all Not being able to stop or control worryin = Not at all Worrying too much about different things: 0 = Not at all Trouble relaxin = Not at all Being so restless that it is hard to sit still: 0 = Not at all Becoming easily annoyed or irritable: 0 = Not at all Feeling afraid as if something awful might happen: 0 = Not at all Total FIONA-7 score (0-4 normal; 5-9 mild; 10-14 moderate; 15-21 severe): 0 Source: Developed by Drs. Issac Mitchell, Amy Means, Oscar Ramirez and colleagues, with an educational norberto from [employer]. FIONA-7 Assessment Billing FIONA-7 Assessment Tool: FIONA-7 Assessment 45691 Review of Systems Const All systems reviewed & are unremarkable except as noted in HPI and below Eyes Reports no additional complaints ENT Reports no additional complaints Card Reports no additional complaints Resp Reports no additional complaints GI Reports no additional complaints Physical exam (Primary Care) Vital Signs: Last Vital Signs Temp 98.4 F 05/16/25 10:38 Pulse 70 05/16/25 10:38 Resp 18 05/16/25 10:38 BP 120/78 05/16/25 10:38 Pulse Ox 98 05/16/25 10:38 Oxygen Delivery Method Room Air 05/16/25 10:38 BMI result Body Mass Index 26.1 Tobacco/Smoking Status: Tobacco use Status Tobacco use date assessed 05/16/25 05/16/25 10:42 Patient Tobacco Use Status Never used Tobacco 05/16/25 10:42 e-Cigarette/Vaping Use Never Used 05/16/25 10:42 PHQ-9: PHQ-9 Score PHQ-9: Total score 0 05/16/25 10:42 Depression Screening Interpretation: Negative Thrive Assessment: Date of Thrive Assessment Date Thrive assessed 05/16/25 05/16/25 10:46 Currently or been in a relationship where the following occur: No concerns reported Const General: no acute distress HENMT Head: Yes normal to inspection Mouth: Normal oral and palatal mucosa present Eyes General: appearance normal, both eyes and all related structures Neck Neck: Yes no lymphadenopathy and Yes supple Resp Effort & Inspection: normal respiratory effort Auscultation: clear to auscultation bilaterally Cardio Rhythm: regular rhythm Heart sounds: S1 normal heart sound present and S2 normal heart sound present GI Inspection: Yes normal to inspection Palpation (GI): Soft to palpation Percussion: Yes normal to percussion Auscultation: normal bowel sounds Coding Level of Care Code Est Pt Prev Care 40-64y(17966) Diagnoses Asymptomatic microscopic hematuria R31.21 Hematuria type: asymptomatic microscopic Annual physical exam Z00.00 Hyperlipemia E78.5 Additional Codes FIONA-7 Assessment Billing - FIONA-7 Assessment Tool: FIONA-7 Assessment 72225 ([id number]) PHQ-9 - 43495 - PHQ-9 Billing: Yes ([id number]) Assessment & Plan Assessment & Plan (1) Hematuria: Comment: one episode 2024, Code(s): R31.9 - Hematuria, unspecified Category: Medical Qualifiers: Hematuria type: asymptomatic microscopic Qualified Code(s): R31.21 - Asymptomatic microscopic hematuria Plan: obtain renal and bladder US (2) Annual physical exam: Code(s): Z00.00 - Encounter for general adult medical examination without abnormal findings Category: Medical Plan: Well-balanced diet regular physical activity discussed with the patient (3) Hyperlipemia: Comment: On low-cholesterol diet, declined medications Code(s): E78.5 - Hyperlipidemia, unspecified Category: Medical Plan: cont low-cholesterol diet. Patient declined medications Orders: Orders US bladder Today R31.21 - Asymptomatic microscopic hematuria Lipid Panel 1 Year E78.5 - Hyperlipidemia, unspecified, Z00.00 - Encounter for general adult medical examination without abnormal findings PSA,Total (Free>4and<10) 1 Year E78.5 - Hyperlipidemia, unspecified, Z00.00 - Encounter for general adult medical examination without abnormal findings US renal BI Today R31.21 - Asymptomatic microscopic hematuria Comprehensive [place]. Panel Fast 1 Year E78.5 - Hyperlipidemia, unspecified, Z00.00 - Encounter for general adult medical examination without abnormal findings Complete Blood Count Auto Diff 1 Year E78.5 - Hyperlipidemia, unspecified, Z00.00 - Encounter for general adult medical examination without abnormal findings UA w Microscopic 1 Year E78.5 - Hyperlipidemia, unspecified, Z00.00 - Encounter for general adult medical examination without abnormal findings
[2025-05-16 10:38] VITALS: BP 120/78; PULSE 70; RESP 18; TEMP 36.9; O2SAT 98; BMI 26.1
== END 2025-05-16 11:10 | disposition home or self-care (01) ==
LOC: HO.HMCC 10:17
PROVIDERS: PCP Internal Medicine; Visit Provider Internal Medicine
DX: R31.21 Asymptomatic microscopic hematuria (principal); Z00.00 Encounter for general adult medical examination without abnormal findings; E78.5 Hyperlipidemia, unspecified

== ENCOUNTER → 2025-05-16 10:16 | Outpatient (BNVA) | payer OTHER, SELFPAY | PROVIDERS: PCP Internal Medicine; Visit Provider Internal Medicine | DX: Z00.00 Encounter for general adult medical examination without abnormal findings (principal); R31.21 Asymptomatic microscopic hematuria; E78.5 Hyperlipidemia, unspecified; Z13.31 Encounter for screening for depression; Z13.39 Encounter for screening examination for other mental health and behavioral disorders | CPT/HCPCS: 96127 ==

== ENCOUNTER 2025-07-14 12:45 | Outpatient (REF) | payer OTHER, SELFPAY ==
--- NOTE | ~2025-07-14 | US_ITS ---
EXAMINATION: US RETROPERITONEUM HISTORY: R31.21 - Asymptomatic microscopic hematuria TECHNIQUE: Real-time grayscale ultrasound imaging of the kidneys was performed and images were reviewed. COMPARISON: There are no prior studies available for comparison. FINDINGS: Right kidney: The right kidney measures 10.3 x 6.1 x 6.1 cm. Renal parenchymal echotexture and thickness are normal. There are no masses. There is no hydronephrosis or renal calculi. Left Kidney: The left kidney measures 11.2 x 5.4 x 5.5 cm. Renal parenchymal echotexture and thickness are normal. There are no masses. There is no hydronephrosis or renal calculi. The urinary bladder is unremarkable. Bilateral ureteral jets are identified. Before voiding, the urinary bladder measured 8.1 x 7.4 x 8.3 cm, for an estimated volume of 333 mL. After voiding, the urinary bladder measured 4.1 x 2.1 x 3.2 cm, for an estimated volume of 18 mL. The prostate measures 5.4 x 4.7 x 6.2 cm, for an estimated volume of 81.5 mL. US/US retroperitoneal comp IMPRESSION: 1. Unremarkable retroperitoneal ultrasound. 2. Post void bladder volume of 7 mL. 3. Prostate volume of 81.5 mL. Electronically signed by: Issac Oseguera MD 07/14/2025 01:30 PM EDT
== END 2025-07-14 12:46 | disposition home or self-care (01) ==
LOC: HO.HMGCX 12:45
PROVIDERS: PCP Internal Medicine; Visit Provider Internal Medicine
DX: R31.21 Asymptomatic microscopic hematuria (principal)
CPT/HCPCS: 76770

== ENCOUNTER → 2025-07-14 12:47 | Outpatient (BNV) | payer OTHER, SELFPAY | PROVIDERS: PCP Internal Medicine; Visit Provider Radiology Diagnostic Radiology | DX: R31.21 Asymptomatic microscopic hematuria (principal) | CPT/HCPCS: 76770 ==